=== PATIENT | female | born 1990 ===

== ENCOUNTER 2023-08-30 12:30 | Inpatient (IN) | payer OTHER ==
[~2023-08-30] VITALS: Ht 162.6 cm; Wt 90.7 kg
[2023-09-10] MEDS ORDERED: AMPICILLIN SODIUM 2,000 MG VIAL ONE (19:50)
[2023-09-10] MEDS ORDERED: PRENATAL TABLE1 EAC1 PO (20:07)
[2023-09-10] MEDS ORDERED: IRON325 MG PO (20:08)
[2023-09-10] MEDS ORDERED: AMPICILLIN SODIUM 2,000 MG VIAL IV ONE (20:15)
[2023-09-10 20:35] LABS: HEMATOCRIT 30.5 % (36.0-45.00); HEMOGLOBIN 10.6 g/dL (12.0-15.00); MEAN CELL VOLUME 90.4 fL (80.00-100.00); MEAN CORPUSCULAR HEMOGLOBIN 31.3 pg (27.00-32.0); MEAN CORPUSCULAR HGB CONC 34.6 g/dl (32.0-36.0); PLATELET COUNT 267 K/uL (150-450); RED BLOOD COUNT 3.37 M/uL (4.00-6.00); RED CELL DISTRIBUTION WIDTH 13.2 % (11.5-14.5)
[2023-09-10 20:57] LABS: INR < 0.93; PARTIAL THROMBOPLASTIN TIME 24.9 SECONDS (22.0-34.0); PROTHROMBIN TIME 9.5 SECONDS (9.0-11.5)
[2023-09-10 21:01] LABS: BILIRUBIN TOTAL 0.26 mg/dL (0.3-1.2); CALCIUM 8.9 mg/dL (8.5-10.1); CREATININE SERUM 0.62 mg/dL (0.55-1.02); GFR 110.19; GLOBULINA 3.6 G/DL (2.4-3.5); POTASSIUM 4.08 mEq/L (3.5-5.1); TOTAL PROTEIN 6.6 gm/dL (6.4-8.2)
[2023-09-11] MEDS ORDERED: AMPICILLIN SODIUM 1,000 MG VIAL IV SCH
[2023-09-11] MEDS ORDERED: OXYTOCIN 20 UNITS/500ML RL PIGGYBAG IV ONE (08:25)
[2023-09-11] MEDS ORDERED: MORPHINE SULFATE 4 MG/ML VIAL IV PRN (08:30)
[2023-09-11] MEDS ORDERED: OXYTOCIN 500 ML IV SCH (08:30)
[2023-09-11] MEDS ORDERED: ERYTHROMYCIN BASE 3.5 GM OINT...G. OP ONE (17:56)
[2023-09-11] MEDS ORDERED: OXYTOCIN 10 UNITS/ML VIAL ONE (17:56)
[2023-09-11] MEDS ORDERED: CITRIC ACID/SODIUM CITRATE 30 ML BLIST.PACK PO ONE ×2 (17:58→18:15)
[2023-09-11] MEDS ORDERED: CEFAZOLIN SODIUM 1,000 MG VIAL IV ONE (18:00)
[2023-09-11] MEDS ORDERED: KETOROLAC TROMETHAMINE 30 MG VIAL IV SCH (18:07)
[2023-09-11] MEDS ORDERED: OXYTOCIN 1,000 ML IV ONE (18:15)
[2023-09-11] MEDS ORDERED: MORPHINE SULFATE 4 MG/ML CARTRIDGE IV PRN (18:15)
[2023-09-11] MEDS ORDERED: RINGERS SOLUTION,LACTATED 1,000 ML IV SCH (18:15)
[2023-09-11] MEDS ORDERED: OXYTOCIN 10 UNITS/ML VIAL IV ONE (19:45)
[2023-09-11] MEDS ORDERED: ERYTHROMYCIN BASE 1 GM TUBE OP ONE (19:45)
[2023-09-11] MEDS ORDERED: KETOROLAC TROMETHAMINE 30 MG VIAL ONE (21:32)
[2023-09-11] MEDS ORDERED: CEFAZOLIN SODIUM 1,000 MG VIAL ONE (21:32)
[2023-09-12] MEDS ORDERED: GABAPENTIN 300 MG CAPSULE PO SCH (01:00)
[2023-09-12] MEDS ORDERED: ACETAMINOPHEN 500 MG GEL..CAP PO SCH (06:00)
[2023-09-12 06:51] LABS: HEMATOCRIT 26.7 % (36.0-45.00); HEMOGLOBIN 9.3 g/dL (12.0-15.00); MEAN CELL VOLUME 90.4 fL (80.00-100.00); MEAN CORPUSCULAR HEMOGLOBIN 31.5 pg (27.00-32.0); MEAN CORPUSCULAR HGB CONC 34.9 g/dl (32.0-36.0); PLATELET COUNT 226 K/uL (150-450); RED BLOOD COUNT 2.96 M/uL (4.00-6.00); RED CELL DISTRIBUTION WIDTH 13.3 % (11.5-14.5)
[2023-09-12] MEDS ORDERED: KETOROLAC TROMETHAMINE 10 MG TABLET PO SCH (08:00)
[2023-09-12] MEDS ORDERED: OxyCODONE HCL 5 MG TABLET (ROXICODONE) PO PRN (08:00)
[2023-09-12] MEDS ORDERED: IRON FUM,PS/FOLIC/BCOMP,C NO.9 1 CAP CAPSULE PO SCH (09:00)
== END 2023-09-13 16:16 | disposition home or self-care (01) | DRG 788 ==
LOC: LDR 09-10 19:04 → O/R 09-11 18:11 → OB/GYN 09-11 19:55
PROVIDERS: Obstetrics & Gynecology; ADMIT Obstetrics & Gynecology Maternal & Fetal Medicine; ATTEND Obstetrics & Gynecology Maternal & Fetal Medicine
PROC: 4A1HXCZ Monitoring of Products of Conception, Cardiac Rate, External Approach (ICD-10-PCS; 2023-09-10)
PROC: 10D00Z1 Extraction of Products of Conception, Low, Open Approach (ICD-10-PCS; principal; 2023-09-11 18:00)
DX: O62.1 Secondary uterine inertia (principal); O36.8130 Decreased fetal movements, third trimester, not applicable or unspecified; Z3A.39 39 weeks gestation of pregnancy; Z37.0 Single live birth; Z20.822 Contact with and (suspected) exposure to COVID-19